=== PATIENT | female | born 1970 | race American Indian/Alaskan Native ===

== ENCOUNTER 2017-01-05 08:13 | Emergency (ER) | payer SELFPAY ==
[2017-01-05 08:56] VITALS: BP 196/104
--- NOTE | 2017-01-05 10:04 | Emergency Department Report ---
HPI - General Chief Complaint: Skin/Abscess/Foreign Body Time Seen by Provider: 01/05/17 09:43 - HPI HPI: She is a 46-year-old female who presents with 3 other members of her home who presents to ED complaining of seen bedbugs in the periods at home 2 days ago. Patient states they have all been exposed to bedbugs and has some bites on the arms and legs. Patient states that there have gotten all sheets and beds turned from the house. She denies fevers or chills/nausea/vomiting or any other problem. ED Past Medical Hx - Past Medical History Previous Medical History?: Yes Hx CVA: Yes (TIAs x2) Hx Headaches / Migraines: Yes Hx Asthma: Yes Additional medical history: Neuropathy, Anemia - Surgical History Past Surgical History?: Yes Additional Surgical History: Gastric bypass - Medications Home Medications: Home Medications Medication Instructions Recorded Confirmed Last Taken Type Diphenhydramine HCl/Zinc Acet 1 applic TP BID #1 tube 01/05/17 Unknown Rx [Benadryl Itch Stopping Crm] Selenium Sulfide 1 applic TP DAILY #1 shampoo 01/05/17 Unknown Rx ED Review of Systems ROS: Stated complaint: BED BUGS Other details as noted in HPI Constitutional: denies: chills, fever Eyes: denies: eye pain, eye discharge, vision change ENT: denies: ear pain, throat pain Respiratory: denies: cough, shortness of breath, wheezing Cardiovascular: denies: chest pain, palpitations Endocrine: no symptoms reported Gastrointestinal: denies: abdominal pain, nausea, diarrhea Genitourinary: denies: urgency, dysuria, discharge Musculoskeletal: denies: back pain, joint swelling, arthralgia Skin: pruritus. denies: rash, lesions Neurological: denies: headache, weakness, paresthesias Psychiatric: denies: anxiety, depression Hematological/Lymphatic: denies: easy bleeding, easy bruising Physical Exam - Physical Exam Vital Signs: Vital Signs 01/05/17 08:53 Temperature 98.1 F Pulse Rate 68 Respiratory 18 Rate Blood Pressure 196/104 O2 Sat by Pulse 99 Oximetry Physical Exam: GENERAL: Alert and oriented x3, no apparent distress, Normal Gait, atraumatic. HEAD: Head is normocephalic and a-traumatic. EYES: Extra ocular muscles are intact. Pupils are equal, round, and reactive to light and accommodation. NECK: Supple. Non edematous, No lymphadenopathy or thyromegaly. LUNGS: Symetrical with respiration, No wheezing, no rales or crackles, CTAB. HEART: S1, S2 present, regular rate and rhythm without murmur, no rubs, no gallops. Non tender to palpation EXTREMITIES/MUSCULOSKELETAL: No cyanosis, clubbing, rash, lesions or edema. NEUROLOGIC: The patient is cooperative with no focal neurologic deficits. SKIN: Multiple generalized moderately healed bite coles consistent with insect bites on extremities. Warm and dry, No lesions, No ulceration or induration present. ED Course Vital Signs 01/05/17 08:53 Temperature 98.1 F Pulse Rate 68 Respiratory 18 Rate Blood Pressure 196/104 O2 Sat by Pulse 99 Oximetry ED Medical Decision Making - Medical Decision Making 46-year-old female presents home infested of bedbugs ED course: Discussed with patient and call housemates to use medication prescriptions as prescribed. Discussed with a all members of the household to follow up with primary care physician in 3-5 days. This patient to get rid of all the bedding and beds washed the patient is in the house Discussed with patient's to have the house fumigated and rid of the bedbugs before going back in. Critical care attestation.: If time is entered above; I have spent that time in minutes in the direct care of this critically ill patient, excluding procedure time. ED Disposition Clinical Impression: Infestation by bed bug Disposition: DC-01 TO HOME OR SELFCARE Is pt being admited?: No Does the pt Need Aspirin: No Condition: Stable Instructions: Insect Bite or Sting (ED) Additional Instructions: Follow-up with primary care physician. Prescriptions: Diphenhydramine HCl/Zinc Acet [Benadryl Itch Stopping Crm] 1 applic TP BID #1 tube Selenium Sulfide 1 applic TP DAILY #1 shampoo Referrals: RUDDY WOLF MD [Primary Care Provider] - 3-5 Days Forms: Accompanied Note, Work/School Release Form(ED) Time of Disposition: 10:17
== END 2017-01-05 10:28 | disposition home or self-care (01) ==
LOC: ED 08:13
DX: S40.861A Insect bite (nonvenomous) of right upper arm, initial encounter (principal); S40.862A Insect bite (nonvenomous) of left upper arm, initial encounter; S80.862A Insect bite (nonvenomous), left lower leg, initial encounter; S80.861A Insect bite (nonvenomous), right lower leg, initial encounter; G43.909 Migraine, unspecified, not intractable, without status migrainosus; G62.9 Polyneuropathy, unspecified; Z86.73 Personal history of transient ischemic attack (TIA), and cerebral infarction without residual deficits; W57.XXXA Bitten or stung by nonvenomous insect and other nonvenomous arthropods, initial encounter; Y93.89 Activity, other specified; Y92.89 Other specified places as the place of occurrence of the external cause; Y99.8 Other external cause status
CPT/HCPCS: 99282